=== PATIENT | female | born 1960 | race Caucasian/White ===

== ENCOUNTER 2021-02-27 12:05 | Emergency (ER) | payer BC, OTHER ==
[~2021-02-27] VITALS: Ht 160 cm; Wt 84.4 kg
[~2021-02-27 12:05] MED LIST: ASPIRIN81 MG PO; CARTIA XT300 MG PO; LIPITOR TAB 2020 MG PO; LIPITOR40 MG PO; LISINOPRIL-HCT1 EAC1 PO; NITROGLYCERIN0.4 MG SL; OMEPRAZOLE40 MG PO; VITAMIN D21250 MCG PO
[2021-02-27 12:42] LABS: HEMOGLOBIN 14.2 gm/dl (12.3-15.3); RED BLOOD COUNT 4.99 M/UL (4.00-5.10); WHITE BLOOD COUNT 5.7 K/UL (4.5-11.0)
[2021-02-27 13:01] LABS: BUN/CREATININE RATIO 12 (0-10)
== END 2021-02-27 17:08 | disposition home or self-care (01) ==
LOC: ER1 12:05
PROVIDERS: Emergency Medicine
DX: U07.1 COVID-19 (principal); Z23 Encounter for immunization; I10 Essential (primary) hypertension; E78.5 Hyperlipidemia, unspecified
CPT/HCPCS: 71045; 80053; 85025; 99284; M0243

== ENCOUNTER → 2021-03-28 | Outpatient (CLI) | payer BC ==
[2021-03-28 08:56] LABS: BUN/CREATININE RATIO 17 (0-10)
== END ==
LOC: LAB 08:23
PROVIDERS: Internal Medicine Cardiovascular Disease
DX: E78.5 Hyperlipidemia, unspecified (principal)
CPT/HCPCS: 36415; 80053; 80061